=== PATIENT | female | born 1950 | race Caucasian/White ===

== ENCOUNTER → 2018-10-16 | Outpatient (CLI) | payer MEDICARE, OTHER ==
[~2018-10-16] MED LIST: ACET325T14 PO; APIX5TAB PO; ASPI-496 PO; DIGO250T PO; OMNIPAQUE 350 MG/ML, 150 ML BOTTLE ONE; POTA20TA89 PO; SOTA80TA18 PO
== END | disposition home or self-care (01) ==
LOC: CFH 10:51
PROVIDERS: ATTEND Internal Medicine Cardiovascular Disease
DX: I48.91 Unspecified atrial fibrillation (principal)
CPT/HCPCS: 71046; 75572; 82565; Q9967

== ENCOUNTER 2018-10-17 06:13 | Observation (INO) | payer MEDICARE, OTHER ==
[2018-10-16 12:55] VITALS: BP 145/93
[2018-10-16 13:37] LABS: BASOPHILS # (AUTO) 0.02 x10^3/uL (0-0.1); BASOPHILS % (AUTO) 0 % (0-1); EOSINOPHILS # (AUTO) 0.04 x10^3/uL (0-0.4); EOSINOPHILS % (AUTO) 1 % (1-7); LYMPHOCYTES # (AUTO) 1.86 x10^3/uL (1-3.4); LYMPHOCYTES % (AUTO) 27 % (22-44); MD NO; MEAN CORPUSCULAR HEMOGLOBIN 33.7 pg (27.0-34.8); MEAN CORPUSCULAR HGB CONC 33.2 g/dL (32.4-35.8); MEAN CORPUSCULAR VOLUME 101.2 fL (80-100); MEAN PLATELET VOLUME 7.6 fL (7.4-10.4); MONOCYTES # (AUTO) 0.57 x10^3/uL (0.2-0.8); MONOCYTES % (AUTO) 8 % (2-9); NEUTROPHILS # (AUTO) 4.42 x10^3/uL (1.8-6.8); NEUTROPHILS % (AUTO) 64 % (42-75); PLATELET COUNT 304 x10^3/uL (130-400); RED BLOOD COUNT 4.74 x10^6/uL (3.82-5.3); RED CELL DISTRIBUTION WIDTH 13.3 % (9.6-15.2)
[2018-10-16 13:51] LABS: ALANINE AMINOTRANSFERASE 31 U/L (12-78); ANION GAP 6 mmol/L (5-15); CALCIUM 10.4 mg/dL (8.5-10.1); CHLORIDE 106 mmol/L (98-107); INTERNATIONAL NORMALIZED RATIO 1.04 (0.93-1.1); PROTHROMBIN TIME 10.9 Seconds (9.6-11.5)
[2018-10-16 13:54] LABS: ALKALINE PHOSPHATASE 55 U/L (45-117); BILIRUBIN,TOTAL 1.1 mg/dL (0.2-1.0); CREATININE 0.87 mg/dL (0.55-1.02); TOTAL PROTEIN 7.5 g/dL (6.4-8.2)
[~2018-10-17] VITALS: Ht 170.2 cm; Wt 68.5 kg
[~2018-10-17 06:13] MED LIST changes: -ACET325T14 PO; -APIX5TAB PO; -OMNIPAQUE 350 MG/ML, 150 ML BOTTLE ONE; -SOTA80TA18 PO
[2018-10-17] MEDS ORDERED: SODIUM CHLORIDE 0.9% 1,000 ML IV SCH ×2 (06:27→06:30)
[2018-10-17] MEDS ORDERED: MIDAZOLAM 1 MG/ML, 2ML ONE (07:57)
[2018-10-17] MEDS ORDERED: FENTANYL PF 100 MCG/2ML ONE (07:57)
[2018-10-17] MEDS ORDERED: LIDOCAINE 1%, 20ML ONE (08:04)
[2018-10-17] MEDS: APIXABAN 5 MG TABLET PO SCH ×2 (11:30→20:14)
[2018-10-17] MEDS ORDERED: ZOLPIDEM 5MG TABLET PO PRN (11:30)
[2018-10-17] MEDS ORDERED: APIXABAN 5 MG TABLET ONE (12:18)
[2018-10-17] MEDS ORDERED: ACETAMINOPHEN 650 MG/20.3 ML UDC ONE (12:18)
[2018-10-17] MEDS ORDERED: HYDROmorphone 2 MG/ML, 1ML IVPush PRN (12:30)
[2018-10-17] MEDS ORDERED: PROMETHAZINE 25 MG/ML, 1ML IV PRN (12:30)
[2018-10-17] MEDS ORDERED: LABETALOL 5MG/ML, 20ML IV PRN (12:30)
[2018-10-17] MEDS ORDERED: hydrALAzine 20 MG/ML, 1ML IV PRN (12:30)
[2018-10-17] MEDS ORDERED: FENTANYL PF 100 MCG/2ML IV PRN (12:30)
[2018-10-17] MEDS ORDERED: ACETAMINOPHEN 325 MG TABLET PO PRN (12:30)
[2018-10-17] MEDS ORDERED: DIAZEPAM 5 MG/ML, 2ML IVPush PRN (12:30)
[2018-10-17] MEDS ORDERED: ALBUTEROL SULFATE 2.5 MG/3 ML NPPB PRN (12:30)
[2018-10-17] MEDS ORDERED: MEPERIDINE/PF 25MG/0.5ML IVPush PRN (12:30)
[2018-10-17] MEDS ORDERED: KETOROLAC 30 MG/1 ML IV PRN (12:30)
[2018-10-17] MEDS ORDERED: OXYcodone 5 MG/5 ML ORAL.SOL UDC PO PRN (12:30)
[2018-10-17] MEDS: ACETAMINOPHEN 325 MG TABLET PO PRN ×2 (12:33→16:25)
[2018-10-17 13:03] VITALS: BP 126/84
[2018-10-17] MEDS: SOTALOL 80MG TABLET PO SCH (17:55)
[2018-10-17 18:50] VITALS: BP 108/75
[2018-10-18 00:09] VITALS: BP 139/89
[2018-10-18] MEDS: SOTALOL 80MG TABLET PO SCH ×2 (05:48→17:57)
[2018-10-18 07:01] VITALS: BP 134/87
[2018-10-18] MEDS: POTASSIUM CHLORIDE 20 MEQ TAB.ER.PRT PO SCH (08:59)
[2018-10-18] MEDS: APIXABAN 5 MG TABLET PO SCH ×2 (08:59→20:09)
[2018-10-18] MEDS ORDERED: DIPHENHYDRAMINE 50 MG CAPSULE PO PRN (09:30)
[2018-10-18] MEDS ORDERED: ARTIFICIAL TEARS 15 DROP/ML BOTTLE RIGHTEYE PRN (09:30)
[2018-10-18 12:50] VITALS: BP 144/94
[2018-10-18 20:12] VITALS: BP 153/89
[2018-10-19 03:42] VITALS: BP 122/76
[2018-10-19] MEDS ORDERED: NITROGLYCERIN 0.4 MG/SPRAY SL PRN (04:00)
[2018-10-19 04:03] VITALS: BP 135/82
[2018-10-19] MEDS: NITROGLYCERIN 0.4 MG BOTTLE (25 TABS) SL PRN ×3 (04:03→04:18)
[2018-10-19 04:21] VITALS: BP 120/75
[2018-10-19] MEDS: ACETAMINOPHEN 325 MG TABLET PO PRN (04:23)
[2018-10-19] MEDS: SOTALOL 80MG TABLET PO SCH ×2 (06:10→17:57)
[2018-10-19 06:33] VITALS: BP 101/63
[2018-10-19] MEDS: POTASSIUM CHLORIDE 20 MEQ TAB.ER.PRT PO SCH (08:44)
[2018-10-19] MEDS: APIXABAN 5 MG TABLET PO SCH ×2 (08:44→21:20)
[2018-10-19 12:57] VITALS: BP 126/84
[2018-10-19 19:34] VITALS: BP 108/74
[2018-10-20 01:53] VITALS: BP 129/84
[2018-10-20 05:28] VITALS: BP 129/65
[2018-10-20] MEDS: SOTALOL 80MG TABLET PO SCH (05:30)
[2018-10-20 06:40] VITALS: BP 118/75
[2018-10-20] MEDS: APIXABAN 5 MG TABLET PO SCH (07:51)
[2018-10-20] MEDS: POTASSIUM CHLORIDE 20 MEQ TAB.ER.PRT PO SCH (07:52)
[2018-10-20] MEDS ORDERED: PROPOFOL 10 MG/ML, 20ML ONE (11:01)
[2018-10-20] MEDS ORDERED: ACET325T14 PO (11:53)
[2018-10-20] MEDS ORDERED: APIX5TAB PO (11:53)
[2018-10-20] MEDS ORDERED: SOTA80TA18 PO (11:53)
[2018-10-20 12:36] VITALS: BP 165/104
== END 2018-10-20 13:46 | disposition home or self-care (01) ==
LOC: CACL 06:13 → ORIP 11:16 → 5SO 13:00 → DCLOUNGE 10-20 13:25
PROVIDERS: ADMIT Internal Medicine Cardiovascular Disease; ATTEND Internal Medicine Cardiovascular Disease
DX: I48.91 Unspecified atrial fibrillation (principal); D68.69 Other thrombophilia; I49.8 Other specified cardiac arrhythmias; I51.89 Other ill-defined heart diseases; F17.200 Nicotine dependence, unspecified, uncomplicated; Z79.82 Long term (current) use of aspirin; Z79.899 Other long term (current) drug therapy
CPT/HCPCS: 36415; 80053; 84484; 85025; 85347; 85610; 85730; 92960; 93005; 93306; 93312; 93321; 93325; 93613; 93656; 93657; 93662; C1730; C1732; C1759; C1766; C1893; C1894; G0378; J2250; J2704; J3010; J3490